=== PATIENT | female | born 1995 | race Two or more races ===

== ENCOUNTER 2017-04-29 18:50 | Emergency (ER) | payer SELFPAY ==
[2017-04-29 19:18] VITALS: BP 105/68; PULSE 74; TEMP 98.5; BMI 26.4
[2017-04-29 20:07] LABS: URINE APPEARANCE CLEAR; URINE BILIRUBIN NEGATIVE (NEGATIVE); URINE BLOOD NEGATIVE (NEGATIVE); URINE COLOR LTYELLOW; URINE GLUCOSE (UA) NEGATIVE (NEGATIVE); URINE KETONE NEGATIVE (NEGATIVE); URINE LEUK ESTERASE NEGATIVE (NEGATIVE); URINE NITRITE NEGATIVE (NEGATIVE); URINE PROTEIN NEGATIVE (NEGATIVE); URINE UROBILINOGEN NEGATIVE mg/dL (0.2-1.0)
[2017-04-29 20:13] LABS: BASOPHIL 0.4 % (0-2.0); EOSINOPHIL 1.1 % (0-4.5); MCH 27.3 pg (25.7-33.7); MCHC 32.8 g/dl (32.0-36.0); MEAN CELL VOLUME 83.2 fl (80-96); MEAN PLT VOLUME 8.1 fl (7.5-11.1); NEUTROPHILS 62.3 % (42.8-82.8); PLATELET COUNT 209 K/MM3 (134-434); RDW 13.6 % (11.6-15.6); WHITE BLOOD COUNT 7.7 K/mm3 (4.0-10.0)
--- NOTE | 2017-04-29 20:26 | PDOC ---
History of Present Illness - General Chief Complaint: Pain Stated Complaint: PAIN, FATIGUE Time Seen by Provider: 04/29/17 19:29 - History of Present Illness Initial Comments: 04/29/17 20:09 CHIEF COMPLAINT: LLQ abd pain HISTORY OF PRESENT ILLNESS: 22 yo F presents to ED with c/o intermittent LLQ abdominal pain, nausea, vomiting, and "palpitations sometimes. " Patient states that her LMP was 7/4 and she just recently found out she is . She denies any headache, vaginal bleeding, No recent travel or sick contacts. PAST MEDICAL HISTORY: Denies past medical history FAMILY HISTORY: Denies SOCIAL HISTORY:Denies tobacco, alcohol, illicit drug use. SURGICAL HISTORY: Denies ALLERGIES: No known drug allergies REVIEW OF SYSTEMS General/Constitutional: Denies fever or chills. Denies weakness, weight change. HEENT: Denies change in vision. Denies ear pain or discharge. Denies sore throat. Cardiovascular: Denies chest pain or shortness of breath. Respiratory: Denies cough, wheezing, or hemoptysis. Gastrointestinal: Nausea, vomiting. Denies diarrhea or constipation. Denies rectal bleeding. Genitourinary: Denies dysuria, frequency, or change in urination. Musculoskeletal: Denies joint or muscle swelling or pain. Denies neck or back pain. Skin: Denies rash or easy bruising. Neurologic: Denies headache, vertigo, loss of consciousness, or loss of sensation. PHYSICAL EXAM General Appearance: Well-appearing, appropriately dressed. No apparent distress. HEENT: EOMI, PERRLA, normal ENT inspection, normal voice, TMs normal, pharynx normal. No conjunctival pallor. No photophobia, scleral icterus. Neck: Supple. Trachea midline. No tenderness, rigidity, carotid bruit, stridor , lymphadenopathy, or thyromegaly. Respiratory/Chest: Lungs CTAB. No shortness of breath, chest tenderness, respiratory distress, accessory muscle use. No crackles, rales, rhonchi, stridor , wheezing, dullness Cardiovascular: RRR. S1, S2. Vascular Pulses: Dorsalis-Pedis (R): 2+, Dorsalis-Pedis (L): 2+ Gastrointestinal/Abdominal: Normal bowel sounds. Abdomen soft, non-distended. No tenderness or rebound tenderness. No organomegaly, pulsatile mass, guarding , hernia, hepatomegaly, splenomegaly. Pelvic: External genitalia normal without lesions. Vaginal vault is clear without blood or discharge. Cervix is long and closed. No cervical motion tenderness. Uterus is nontender and normal in size. Adnexa are nontender and without masses. Lymphatic: No adenopathy, tenderness. Musculoskeletal/Extremities: Normal inspection. FROM of all extremities, normal capillary refill. Pelvis Stable. No CVA tenderness. No tenderness to extremities, pedal edema, swelling, erythema or deformity. Integumentary: Appropriate color, dry, warm. No cyanosis, erythema, jaundice or rash Neurologic: bank courier II-XII intact. Fully oriented, alert. Appropriate mood/affect. Motor strength 5/5. No appreciable EOM palsy, facial droop or sensory deficit. 04/29/17 20:27 Past History - Past Medical History Allergies/Adverse Reactions: Allergies Allergy/AdvReac Type Severity Reaction Status Date / Time No Known Allergies Allergy Verified 01/06/15 22:08 Home Medications: Ambulatory Orders Vitamins (Sjr) - 1 tab PO DAILY 04/21/14 Ferrous Sulfate [Feosol] 325 mg PO DAILY 07/21/14 Doxylamine/Pyridoxine HCl [Yamila Dr 10-10 mg Tablet] 1 each PO ASDIR #60 tablet. 04/29/17 Asthma: Yes Cancer: No Cardiac Disorders: No Diabetes: No HTN: No Seizures: No Thyroid Disease: No - Surgical History Appendectomy: Yes - Immunization History Td Vaccination: Yes Immunization Up to Date: Yes - Psycho/Social/Smoking Cessation Hx Anxiety: No Suicidal Ideation: No Smoking Status: No Smoking History: Current some day smoker Years of Tobacco Use: 0 Have you smoked in the past 12 months: No Number of Cigarettes Smoked Daily: 0 If you are a former smoker, when did you quit?: Hookah Cigars Per Day: 0 Information on smoking cessation initiated: No Hx Alcohol Use: No Drug/Substance Use Hx: No Hx Substance Use Treatment: No *Physical Exam - Vital Signs Last Vital Signs Temp Pulse Resp BP Pulse Ox 98.5 F 74 16 105/68 100 04/29/17 19:16 04/29/17 19:16 04/29/17 19:16 04/29/17 19:16 04/29/17 19:16 ED Treatment Course - LABORATORY CBC & Chemistry Diagram: 04/29/17 20:00 04/29/17 19:52 - ADDITIONAL ORDERS Additional order review: Laboratory Results 04/29/17 19:52 Urine Color Ltyellow Urine Appearance Clear Urine pH 7.0 D Urine Protein Negative Urine Glucose (UA) Negative Urine Ketones Negative Urine Blood Negative Urine Nitrite Negative Urine Bilirubin Negative Urine Urobilinogen Negative Ur Leukocyte Esterase Negative Urine HCG, Qual Positive - RADIOLOGY Radiology Studies Ordered: Category Date Time Status TRANSVAGINAL US PREG [US] Stat Ultrasound 04/29/17 19:48 Ordered Medical Decision Making - Medical Decision Making 04/29/17 21:14 22 yo F presents to ED with c/o intermittent LLQ abdominal pain, nausea, vomiting, and "palpitations sometimes." -EKG -CBC, CMP, beta hcg -UA, Ucx -TVUS 04/29/17 22:22 TVUS results: Single live IUP with EGA of 6 weeks. FHR 89 bpm, continued surveillance recommended for low heart rate. Ovaries notable for possible corpus luteum cyst in R ovary. Flow demonstrated in both ovaries utilizing color flow an Doppler waveform imaging. No ultrasound evidence of ovarian torsion. No free fluid demonstrated in pelvis. Read by: Dr. Merissa Choi Discussed US results with patient. Advised patient to return in two days or f/ u with Dr. Rico for repeat beta hCG for continued evaluation of . Advised patient of signs and symptoms for return to ER; patient verbalized understanding and agrees to plan. *DC/Admit/Observation/Transfer Diagnosis at time of Disposition: Threatened - Discharge Dispostion Disposition: HOME Condition at time of disposition: Stable Admit: No - Prescriptions Prescriptions: Doxylamine/Pyridoxine HCl [Yamila Darling 10-10 mg Tablet] 1 each PO ASDIR #60 tablet.dr - Referrals Referrals: Adam Russell MD [Primary Care Provider] - Gurvinder Brantley MD [Staff Physician] - - Patient Instructions Printed Discharge Instructions: DI for Threatened Additional Instructions: Please take medication as prescribed. As discussed, you must return to the ER in 48 hours or follow up with Dr. Rico for repeat labwork for continued evaluation of your . If you develop severe abdominal pain, vaginal bleeding or cramping, abnormal discharge, or any new or worsening symptoms, please return to the ER.
[2017-04-29 20:55] LABS: ALBUMIN 3.7 g/dl (3.4-5.0); ANION GAP 9 (8-16); BILIRUBIN,TOTAL 0.5 mg/dL (0.2-1.0); CALCIUM 8.8 mg/dL (8.5-10.1); CO2 24 mmol/L (21-32); CREATININE 0.6 mg/dL (0.55-1.02); GLUCOSE,RANDOM 86 mg/dL (74-106); SGOT/AST 12 U/L (15-37); SGPT/ALT 21 U/L (12-78)
[2017-04-29 21:09] LABS: ALK PHOS 63 U/L (45-117)
--- NOTE | 2017-04-30 22:14 | EKG ---
Test Reason : Blood Pressure : / mmHG Vent. Rate : 072 BPM Atrial Rate : 072 BPM P-R Int : 148 ms QRS Dur : 082 ms QT Int : 382 ms P-R-T Axes : 030 018 027 degrees QTc Int : 418 ms NORMAL SINUS RHYTHM LOW VOLTAGE QRS BORDERLINE ECG WHEN COMPARED WITH ECG OF 26-MAR-2013 04:11, NO SIGNIFICANT CHANGE WAS FOUND Confirmed by MISTY GARCIA MD ([id number]) on 04/30/2017 10:14:00 PM Referred By: Confirmed By:MISTY GARCIA MD
== END 2017-04-29 22:33 | disposition home or self-care (01) ==
LOC: JER 18:50
DX: O20.0 Threatened abortion (principal); O34.81 Maternal care for other abnormalities of pelvic organs, first trimester; N83.201 Unspecified ovarian cyst, right side; Z3A.01 Less than 8 weeks gestation of pregnancy
CPT/HCPCS: 36415; 76817-TC; 80053; 81003; 84702; 84703; 85025; 87086; 93005; 93010; 99283-25

== ENCOUNTER 2017-05-03 10:42 | Emergency (ER) | payer SELFPAY ==
[2017-05-03 10:51] VITALS: BP 107/57; PULSE 80; TEMP 98.6; BMI 26.9
--- NOTE | 2017-05-03 11:28 | PDOC ---
Attending Attestation - Resident Resident Name: Mary Jordan - ED Attending Attestation I have performed the following: I have examined & evaluated the patient, The case was reviewed & discussed with the resident, I agree w/resident's findings & plan, Exceptions are as noted - HPI HPI: 05/03/17 11:25 Abdominal Pain, Six weeks 05/03/17 11:26 - Physicial Exam PE: 05/03/17 11:25 VSS/NAD Abd Soft and Benign - Medical Decision Making 05/03/17 11:[address] Jordan's Assessment and Plan
--- NOTE | 2017-05-03 12:00 | PDOC ---
History of Present Illness - General Chief Complaint: Pain, Acute Stated Complaint: PELVIC PAIN (6 WKS ) Time Seen by Provider: 05/03/17 11:20 History Source: Patient Exam Limitations: No Limitations - History of Present Illness Initial Comments: 22yo F with no significant PMH presents c/o lower abdominal pain x 6 weeks. Pt was last here 4 days ago for same complaint, when she had recently found out she was . Lower abdominal pain is described a tightening, intermittent, almost feeling like a contraction. Pain does not radiate, rated 5 /10. Pt also c/o nausea, constipation, and hx of palpitations. Pt denies fever , vaginal bleeding, vomiting. 05/03/17 11:55 Past History - Past Medical History Allergies/Adverse Reactions: Allergies Allergy/AdvReac Type Severity Reaction Status Date / Time No Known Allergies Allergy Verified 05/03/17 10:47 Home Medications: Ambulatory Orders Vitamins (Sjr) - 1 tab PO DAILY 04/21/14 Ferrous Sulfate [Feosol] 325 mg PO DAILY 07/21/14 Anemia: Yes Asthma: Yes Cancer: No Cardiac Disorders: No Diabetes: No HTN: No Seizures: No Thyroid Disease: No - Surgical History Appendectomy: Yes - Reproductive History LMP comment: 02/27/17 - Immunization History Td Vaccination: Yes Immunization Up to Date: Yes - Psycho/Social/Smoking Cessation Hx Anxiety: No Suicidal Ideation: No Smoking Status: No Smoking History: Never smoked Years of Tobacco Use: 0 Have you smoked in the past 12 months: No Number of Cigarettes Smoked Daily: 0 If you are a former smoker, when did you quit?: Hookah Cigars Per Day: 0 Information on smoking cessation initiated: No Hx Alcohol Use: No Drug/Substance Use Hx: No Hx Substance Use Treatment: No Review of Systems - Review of Systems Able to Perform ROS?: Yes Is the patient limited Occitan proficient: No Constitutional: No: Chills, Diaphoresis, Fever HEENTM: No: Recent change in vision, Ear Pain, Nose Pain, Throat Pain Respiratory: No: Cough, Shortness of Breath, Stridor, Wheezing, Hemoptysis Cardiac (ROS): No: Chest Pain, Irregular Heart Rate, Palpitations ABD/GI: Yes: Constipated, Nausea, Abdominal cramping. No: Abdominal Distended, Diarrhea, Rectal Bleeding, Vomiting : No: Burning, Dysuria, Hematuria Musculoskeletal: No: Joint Pain, Muscle Pain Neurological: No: Headache, Unsteady Gait, Dizziness *Physical Exam - Vital Signs Last Vital Signs Temp Pulse Resp BP Pulse Ox 98.6 F 80 19 107/57 99 05/03/17 10:47 05/03/17 10:47 05/03/17 10:47 05/03/17 10:47 05/03/17 10:47 - Physical Exam General Appearance: Yes: Nourished, Appropriately Dressed. No: Apparent Distress HEENT: positive: EOMI, Other (moist mucous membranes). negative: Normal Voice, Pale Conjunctivae, Scleral Icterus (R), Scleral Icterus (L) Neck: positive: Trachea midline, Supple Respiratory/Chest: positive: Lungs Clear, Normal Breath Sounds. negative: Respiratory Distress, Accessory Muscle Use Cardiovascular: positive: Regular Rhythm, Regular Rate, S1, S2. negative: Murmur Female Pelvic Exam: positive: normal external exam, cervical os closed, normal size ovaries. negative: vaginal bleeding Gastrointestinal/Abdominal: positive: Soft. negative: Distended, Guarding, Rebound, Tenderness Musculoskeletal: positive: Normal Inspection. negative: Decreased Range of Motion Extremity: positive: Normal Inspection, Normal Range of Motion Integumentary: positive: Dry, Warm. negative: Rash Neurologic: positive: Fully Oriented, Alert, Normal Mood/Affect, Normal Response , Motor Strength 5/5 ED Treatment Course - RADIOLOGY Radiology Studies Ordered: Category Date Time Status TRANSVAGINAL ULTRASOUND US [US] Stat Ultrasound 05/03/17 11:49 Ordered Medical Decision Making - Medical Decision Making 22yo F 6 weeks 4 days with no significant PMH presents c/o lower abdominal pain x 6 weeks and nausea. Pain is described as tightening, intermittent, feels almost like a contraction. Pt was just here 4 days ago for same complaint and received transvaginal US which revealed IUP with borderline low heart rate (89 BPM) as well as 1.4cm Right ovarian cyst which pt was concerned about. Pt also reports that she is still waiting for her Medicaid card and was unable to fill her prescription for Diclegis (-related anti-nausea medication). Pt has hx of palpitations, but does not c/o any palpitations now. - UA - Pelvic exam unremarkable. - Transvaginal US ordered to reassess heart rate, though it was explained to pt that this US may not reveal very different information from the US 4 days ago. Education about ovarian cysts was provided, all of pt's questions were answered and pt verbalized understanding. 05/03/17 12:08 05/03/17 13:43 UA negative for UTI Transvaginal US reveals single IUP with estimated gestational age 6 weeks 1 day. heart rate of 112 noted. 2.1cm x 1.4cm hypoechoic Right ovarian cyst again noted, described as likely a hemorrhagic corpus luteum cyst. Pt can go home. *DC/Admit/Observation/Transfer Diagnosis at time of Disposition: Abdominal pain during intrauterine - Discharge Dispostion Admit: No - Referrals Referrals: Adam Russell MD [Primary Care Provider] - - Patient Instructions Additional Instructions: Please fill prescription for Diclegis for nausea and take as directed. Please rest for the next couple days. I hope you start feeling better soon! - Post Discharge Activity Work/School Note: Back to Work
[2017-05-03 12:12] LABS: URINE APPEARANCE SLCLOUDY; URINE BILIRUBIN NEGATIVE (NEGATIVE); URINE BLOOD NEGATIVE (NEGATIVE); URINE COLOR AMBER; URINE GLUCOSE (UA) NEGATIVE (NEGATIVE); URINE KETONE NEGATIVE (NEGATIVE); URINE LEUK ESTERASE NEGATIVE (NEGATIVE); URINE NITRITE NEGATIVE (NEGATIVE); URINE PROTEIN NEGATIVE (NEGATIVE)
== END 2017-05-03 14:15 | disposition home or self-care (01) ==
LOC: JER 10:42
DX: O26.891 Other specified pregnancy related conditions, first trimester (principal); R10.30 Lower abdominal pain, unspecified; O34.81 Maternal care for other abnormalities of pelvic organs, first trimester; N83.291 Other ovarian cyst, right side; Z3A.01 Less than 8 weeks gestation of pregnancy
CPT/HCPCS: 76817-TC; 81003; 99283-25

== ENCOUNTER 2017-07-31 14:44 | Emergency (ER) | payer OTHER ==
--- NOTE | 2017-07-31 14:48 | PDOC ---
Rapid Medical Evaluation Time Seen by Provider: 07/31/17 14:48 Medical Evaluation: Allergies Allergy/AdvReac Type Severity Reaction Status Date / Time No Known Allergies Allergy Verified 07/31/17 14:48 07/31/17 14:48 I have performed a brief in-person evaluation of this patient. The patient presents with a chief complaint of: , ~19 weeks w/ no movement w/ ?lower abd pain today, no vag bleed. OB is Dr Brantley Pertinent physical exam findings: Tachy to 112 (endorses h/o chronic palpitation that has been present prior to ), otherwise stable at triage I have ordered the following:ua/beta/US The patient will proceed to the ED for further evaluation. 07/31/17 14:49 07/31/17 14:53 07/31/17 14:54 07/31/17 14:55
[2017-07-31 14:52] VITALS: BMI 28.9
[2017-07-31 15:18] LABS: URINE APPEARANCE SLCLOUDY; URINE BILIRUBIN NEGATIVE (NEGATIVE); URINE BLOOD NEGATIVE (NEGATIVE); URINE COLOR YELLOW; URINE GLUCOSE (UA) NEGATIVE (NEGATIVE); URINE KETONE NEGATIVE (NEGATIVE); URINE NITRITE NEGATIVE (NEGATIVE); URINE PROTEIN NEGATIVE (NEGATIVE); URINE UROBILINOGEN NEGATIVE mg/dL (0.2-1.0)
--- NOTE | 2017-07-31 16:59 | PDOC ---
History of Present Illness <Juanjo Farah - Last Filed: 07/31/17 16:59> <Huong Murcia - Last Filed: 07/31/17 17:11> - General Chief Complaint: Pain Stated Complaint: 16 WEEKS /ABD PAIN Time Seen by Provider: 07/31/17 14:48 Past History - Past Medical History Anemia: Yes Asthma: Yes Cancer: No Cardiac Disorders: No COPD: No Diabetes: No HTN: No Seizures: No Thyroid Disease: No - Surgical History Appendectomy: Yes - Reproductive History Is Patient Now?: Yes (#): 3 Para: 2 Cervical CA: No Dysfunctional Uterine Bleeding: No Ectopic : No Endometrial CA: No Polycystic Ovaries: No Therapeutic (s) & number: No Tubal Ligation: No - Immunization History Td Vaccination: Yes Immunization Up to Date: Yes - Suicide/Smoking/Psychosocial Hx Smoking Status: No Smoking History: Never smoked Years of Tobacco Use: 0 Have you smoked in the past 12 months: No Number of Cigarettes Smoked Daily: 0 If you are a former smoker, when did you quit?: Hookah Cigars Per Day: 0 Information on smoking cessation initiated: No Hx Alcohol Use: No Drug/Substance Use Hx: No Substance Use Type: None Hx Substance Use Treatment: No <Juanjo Farah - Last Filed: 07/31/17 16:59> <Huong Murcia - Last Filed: 07/31/17 17:11> - Past Medical History Allergies/Adverse Reactions: Allergies Allergy/AdvReac Type Severity Reaction Status Date / Time No Known Allergies Allergy Verified 07/31/17 14:48 Home Medications: Ambulatory Orders Albuterol Sulfate Inhaler - [Ventolin HFA Inhaler -] 1 - 2 inh PO Q4H PRN #1 inhaler 07/31/17 *Physical Exam - Vital Signs Last Vital Signs Temp Pulse Resp BP Pulse Ox 98.0 F 112 H 18 122/57 100 07/31/17 14:48 07/31/17 14:48 07/31/17 14:48 07/31/17 14:48 07/31/17 14:48 <Juanjo Farah - Last Filed: 07/31/17 16:59> - Vital Signs Last Vital Signs Temp Pulse Resp BP Pulse Ox 98.0 F 112 H 18 122/57 100 07/31/17 14:48 07/31/17 14:48 07/31/17 14:48 07/31/17 14:48 07/31/17 14:48 <Gavino Murciaa Aline - Last Filed: 07/31/17 17:11> ED Treatment Course - ADDITIONAL ORDERS Additional order review: Laboratory Results 07/31/17 07/31/17 15:00 15:00 Beta HCG, Quant 8072.3 Urine Color Yellow Urine Appearance Slcloudy Urine pH 6.0 Ur Specific [place] 1.025 Urine Protein Negative Urine Glucose (UA) Negative Urine Ketones Negative Urine Blood Negative Urine Nitrite Negative Urine Bilirubin Negative Urine Urobilinogen Negative <Juanjo Farah - Last Filed: 07/31/17 16:59> - ADDITIONAL ORDERS Additional order review: Laboratory Results 07/31/17 07/31/17 15:00 15:00 Beta HCG, Quant 8072.3 Urine Color Yellow Urine Appearance Slcloudy Urine pH 6.0 Ur Specific [place] 1.025 Urine Protein Negative Urine Glucose (UA) Negative Urine Ketones Negative Urine Blood Negative Urine Nitrite Negative Urine Bilirubin Negative Urine Urobilinogen Negative <Huong Murcia - Last Filed: 07/31/17 17:11> *DC/Admit/Observation/Transfer <GaganJuanjo - Last Filed: 07/31/17 16:59> <Huong Murcia - Last Filed: 07/31/17 17:11> Diagnosis at time of Disposition: 14-20 weeks gestation of - Discharge Dispostion Disposition: HOME Condition at time of disposition: Stable - Referrals Referrals: Adam Russell MD [Primary Care Provider] - - Patient Instructions Printed Discharge Instructions: DI for Pelvic Pain, DI for -- Discomforts and Remedies Additional Instructions: 1- your albuterol inhaler prescription is sent to your pharmacy 2. please followup with Dr Rico 3. Remember to turn in your cardiac holter monitor to Dr Russell's office - Post Discharge Activity
--- NOTE | 2017-07-31 17:27 | PDOC ---
History of Present Illness <Huong Murcia - Last Filed: 07/31/17 17:27> - History of Present Illness Initial Comments: 07/31/17 17:29 The patient is a 22 year old (19 weeks 1 day) female, with no significant past medical history, who presents to the emergency department for decreased movement and palpitations. Patient says she was recently certified for medicaid and is anxious to obtain the care shes been missing. She came to the ER because she was concerned that she didn't feel the fetus move. She states she is also experiencing palpitations. She denies pelvic cramps or bleeding. She denies recent fevers, chills, headache or dizziness. She denies recent nausea, vomit, diarrhea or constipation. She denies recent dysuria, frequency, urgency or hematuria. She denies recent chest pain or shortness of breath. Allergies: NKA Past surgical history: None reported. Social history: Occasional hookah smoker.. Denies EtOH use and recreational drug use. Primary Care Physician: Adam Russell <Jesika Schultz - Last Filed: 07/31/17 17:30> - General Chief Complaint: Pain Stated Complaint: 16 WEEKS /ABD PAIN Time Seen by Provider: 07/31/17 14:48 Past History - Past Medical History Anemia: Yes Asthma: Yes Cancer: No Cardiac Disorders: No COPD: No Diabetes: No HTN: No Seizures: No Thyroid Disease: No - Surgical History Appendectomy: Yes - Reproductive History Is Patient Now?: Yes (#): 3 Para: 2 Cervical CA: No Dysfunctional Uterine Bleeding: No Ectopic : No Endometrial CA: No Polycystic Ovaries: No Therapeutic (s) & number: No Tubal Ligation: No - Immunization History Td Vaccination: Yes Immunization Up to Date: Yes - Suicide/Smoking/Psychosocial Hx Smoking Status: No Smoking History: Never smoked Years of Tobacco Use: 0 Have you smoked in the past 12 months: No Number of Cigarettes Smoked Daily: 0 If you are a former smoker, when did you quit?: Hookah Cigars Per Day: 0 Information on smoking cessation initiated: No Hx Alcohol Use: No Drug/Substance Use Hx: No Substance Use Type: None Hx Substance Use Treatment: No <Huong Murcia - Last Filed: 07/31/17 17:27> <Jesika Schultz - Last Filed: 07/31/17 17:30> - Past Medical History Allergies/Adverse Reactions: Allergies Allergy/AdvReac Type Severity Reaction Status Date / Time No Known Allergies Allergy Verified 07/31/17 14:48 Home Medications: Ambulatory Orders Albuterol Sulfate Inhaler - [Ventolin HFA Inhaler -] 1 - 2 inh PO Q4H PRN #1 inhaler 07/31/17 Review of Systems - Review of Systems Comments:: 07/31/17 17:29 CONSTITUTIONAL: Absent: fever, no chills, no fatigue EYES: Absent: visual changes ENT: Absent: ear pain, no sore throat CARDIOVASCULAR: Present: palpitations Absent: chest pain RESPIRATORY: Absent: cough, no SOB GI: Absent: abdominal pain, no nausea, no vomiting, no constipation, no diarrhea GENITOURINARY: Absent: dysuria, no frequency, no hematuria 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 MUSCULOSKELETAL: Absent: back pain, no arthralgia, no myalgia SKIN: Absent: rash NEURO: Absent: headache <AntoineJesika - Last Filed: 07/31/17 17:30> *Physical Exam - Vital Signs Last Vital Signs Temp Pulse Resp BP Pulse Ox 98.0 F 112 H 18 122/57 100 07/31/17 14:48 07/31/17 14:48 07/31/17 14:48 07/31/17 14:48 07/31/17 14:48 <TwinGavinorocio Choudharyh - Last Filed: 07/31/17 17:27> - Vital Signs Last Vital Signs Temp Pulse Resp BP Pulse Ox 98.0 F 112 H 18 122/57 100 07/31/17 14:48 07/31/17 14:48 07/31/17 14:48 07/31/17 14:48 07/31/17 14:48 - Physical Exam Comments: 07/31/17 17:30 GENERAL: Well-appearing, well-nourished. No apparent distress. HEENT: Normocephalic, atraumatic. PERRL, EOM intact. CARDIOVASCULAR: Normal S1, S2. Regular rate and rhythm. PULMONARY: Clear to auscultation bilaterally. ABDOMEN: Soft, non-distended, non-tender. EXTREMITIES: Normal ROM in all four extremities. No gross deformities. SKIN: Warm, dry. No rash NEUROLOGICAL: No focal neurological deficits. <Jesika Schultz - Last Filed: 07/31/17 17:30> ED Treatment Course - ADDITIONAL ORDERS Additional order review: Laboratory Results 07/31/17 07/31/17 15:00 15:00 Beta HCG, Quant 8072.3 Urine Color Yellow Urine Appearance Slcloudy Urine pH 6.0 Ur Specific [place] 1.025 Urine Protein Negative Urine Glucose (UA) Negative Urine Ketones Negative Urine Blood Negative Urine Nitrite Negative Urine Bilirubin Negative Urine Urobilinogen Negative <Huong Murcia - Last Filed: 07/31/17 17:27> - ADDITIONAL ORDERS Additional order review: Laboratory Results 07/31/17 07/31/17 15:00 15:00 Beta HCG, Quant 8072.3 Urine Color Yellow Urine Appearance Slcloudy Urine pH 6.0 Ur Specific [place] 1.025 Urine Protein Negative Urine Glucose (UA) Negative Urine Ketones Negative Urine Blood Negative Urine Nitrite Negative Urine Bilirubin Negative Urine Urobilinogen Negative <Jesika Schultz - Last Filed: 07/31/17 17:30> *DC/Admit/Observation/Transfer <Huong Murcia - Last Filed: 07/31/17 17:27> - Attestations Scribe Attestion: 07/31/17 17:30 Documentation prepared by Jesika Schultz, acting as medical policy specialist for Huong Murcia MD. <Jesika Schultz - Last Filed: 07/31/17 17:30> Diagnosis at time of Disposition: 14-20 weeks gestation of - Discharge Dispostion Disposition: HOME Condition at time of disposition: Stable - Prescriptions Prescriptions: Albuterol Sulfate Inhaler - [Ventolin HFA Inhaler -] 1 - 2 inh PO Q4H PRN #1 inhaler PRN Reason: Asthma - Referrals Referrals: Adam Russell MD [Primary Care Provider] - - Patient Instructions Printed Discharge Instructions: DI for -- Discomforts and Remedies, DI for Pelvic Pain Additional Instructions: 1- your albuterol inhaler prescription is sent to your pharmacy 2. please followup with Dr Rico 3. Remember to turn in your cardiac holter monitor to Dr Russell's office - Post Discharge Activity
[2017-07-31 18:24] VITALS: BP 111/65; PULSE 86; TEMP 98.1
[2017-07-31 18:49] LABS: URINE LEUK ESTERASE Negative (NEGATIVE)
== END 2017-07-31 17:55 | disposition home or self-care (01) ==
LOC: JER 14:44
DX: O26.892 Other specified pregnancy related conditions, second trimester (principal); Z3A.19 19 weeks gestation of pregnancy
CPT/HCPCS: 36415; 76815-TC; 81003; 84702; 99282-25

== ENCOUNTER 2017-09-25 14:08 | Emergency (ER) | payer OTHER ==
--- NOTE | 2017-09-25 14:26 | PDOC ---
Rapid Medical Evaluation Chief Complaint: Asthma Time Seen by Provider: 09/25/17 14:23 Medical Evaluation: Allergies Allergy/AdvReac Type Severity Reaction Status Date / Time No Known Allergies Allergy Verified 09/25/17 14:23 09/25/17 14:24 Pt c/o: sob and wheezing since last night. c/o intermittent palpitation. hx of astham 27b weeks Pt on exam: no wheezing, no decreased BS, hr 94, o2 sat wnl Pt ordered for : ekg Pt to proceed to ED Discharge Disposition - Diagnosis Shortness of breath - Referrals - Patient Instructions - Post Discharge Activity
[2017-09-25 14:28] VITALS: BP 97/54; PULSE 94; TEMP 98.3; BMI 30.7
--- NOTE | 2017-09-25 15:05 | EKG ---
Test Reason : Blood Pressure : / mmHG Vent. Rate : 080 BPM Atrial Rate : 080 BPM P-R Int : 148 ms QRS Dur : 080 ms QT Int : 370 ms P-R-T Axes : 029 022 022 degrees QTc Int : 426 ms NORMAL SINUS RHYTHM T WAVE ABNORMALITY, CONSIDER ANTERIOR ISCHEMIA ABNORMAL ECG WHEN COMPARED WITH ECG OF 29-APR-2017 20:11, NO SIGNIFICANT CHANGE WAS FOUND Confirmed by MD LUKE, SHAISTA ([id number]) on 09/25/2017 3:05:35 PM Referred By: Confirmed By:SHAISTA BUTLER MD
--- NOTE | 2017-09-25 15:24 | PDOC ---
History of Present Illness - General Chief Complaint: Asthma Stated Complaint: ASTHMA Time Seen by Provider: 09/25/17 14:23 History Source: Patient Exam Limitations: No Limitations - History of Present Illness Initial Comments: 09/25/17 15:23 22 yr female with history of asthma , 27 weeks states she has been coughing having chest pain worse at night with heartburn. no fever, no shortness of breath, no history of intubations. Past History - Past Medical History Allergies/Adverse Reactions: Allergies Allergy/AdvReac Type Severity Reaction Status Date / Time No Known Allergies Allergy Verified 09/25/17 14:23 Home Medications: Ambulatory Orders Albuterol Sulfate Inhaler - [Ventolin HFA Inhaler -] 1 - 2 inh PO Q4H PRN #1 inhaler 07/31/17 Ferrous Sulfate, Dried [Iron] 159 mg PO ASDIR 09/25/17 Anemia: Yes Asthma: Yes Cancer: No Cardiac Disorders: No COPD: No Diabetes: No HTN: No Seizures: No Thyroid Disease: No - Surgical History Appendectomy: Yes - Reproductive History (#): 3 Para: 2 Cervical CA: No Dysfunctional Uterine Bleeding: No Ectopic : No Endometrial CA: No Polycystic Ovaries: No Therapeutic (s) & number: No Tubal Ligation: No - Immunization History Td Vaccination: Yes Immunization Up to Date: Yes - Suicide/Smoking/Psychosocial Hx Smoking Status: No Smoking History: Never smoked Years of Tobacco Use: 0 Have you smoked in the past 12 months: No Number of Cigarettes Smoked Daily: 0 If you are a former smoker, when did you quit?: Hookah Cigars Per Day: 0 Information on smoking cessation initiated: No Hx Alcohol Use: No Drug/Substance Use Hx: No Substance Use Type: None Hx Substance Use Treatment: No *Physical Exam - Vital Signs Last Vital Signs Temp Pulse Resp BP Pulse Ox 98.3 F 94 H 15 97/54 99 09/25/17 14:23 09/25/17 14:23 09/25/17 14:23 09/25/17 14:23 09/25/17 14:23 *DC/Admit/Observation/Transfer Diagnosis at time of Disposition: Shortness of breath - Referrals Referrals: Adam Russell MD [Primary Care Provider] - - Patient Instructions - Post Discharge Activity
--- NOTE | 2017-09-25 16:06 | PDOC ---
History of Present Illness <Nick Galvez - Last Filed: 09/25/17 16:10> - General History Source: Patient Exam Limitations: No Limitations - History of Present Illness Initial Comments: 09/25/17 18:59 The patient is a A0, 22 year old female who is 27 weeks , with a significant PMH of asthma who presents to the emergency department with chest tightness, shortness of breath, dry cough and wheezing that lasted from approximately midnight last night to 3AM today that has since resolved . The patient states she gets intermittent palpitations and chest tightness throughout her . is currently getting a workup for her palpitations with a monitor with her PMD. Pt denies any worsening of sob/palpitations when she is walking around.. The patient reports using her albuterol last night with mild alleviation of her symptoms. Pt does endorse mild coughing last night that is nonproductive.The patient notes she went to her [facility] appointment today and was told to come to the ER for further evaluation. The patient states her chest tightness has resolved since arrival to the ER. The patient denies leg swelling, headache and dizziness. Denies fever, chills, productive cough, hemoptysis, nausea, vomit, diarrhea and constipation. Denies dysuria, frequency, urgency and hematuria. No associated leg swelling, calf pain. Allergies: NKA Past surgical history: None reported. Social history: No reported alcohol, drug, or cigarette use. PCP: Adam Shafer <Willa Nash - Last Filed: 09/25/17 19:00> - General Chief Complaint: Asthma Stated Complaint: ASTHMA Time Seen by Provider: 09/25/17 14:23 Past History - Past Medical History Anemia: Yes Asthma: Yes Cancer: No Cardiac Disorders: No COPD: No Diabetes: No HTN: No Seizures: No Thyroid Disease: No - Surgical History Appendectomy: Yes - Reproductive History (#): 3 Para: 2 Cervical CA: No Dysfunctional Uterine Bleeding: No Ectopic : No Endometrial CA: No Polycystic Ovaries: No Therapeutic (s) & number: No Tubal Ligation: No - Immunization History Td Vaccination: Yes Immunization Up to Date: Yes - Suicide/Smoking/Psychosocial Hx Smoking Status: No Smoking History: Former smoker Years of Tobacco Use: 0 Have you smoked in the past 12 months: No Number of Cigarettes Smoked Daily: 0 If you are a former smoker, when did you quit?: 6MONTHS Cigars Per Day: 0 Information on smoking cessation initiated: No Hx Alcohol Use: No Drug/Substance Use Hx: No Substance Use Type: None Hx Substance Use Treatment: No <Nick Galvez - Last Filed: 09/25/17 16:10> <Willa Nash - Last Filed: 09/25/17 19:00> - Past Medical History Allergies/Adverse Reactions: Allergies Allergy/AdvReac Type Severity Reaction Status Date / Time No Known Allergies Allergy Verified 09/25/17 14:23 Home Medications: Ambulatory Orders Albuterol Sulfate Inhaler - [Ventolin HFA Inhaler -] 1 - 2 inh PO Q4H PRN #1 inhaler 07/31/17 Ferrous Sulfate, Dried [Iron] 159 mg PO ASDIR 09/25/17 Review of Systems - Review of Systems Able to Perform ROS?: Yes Comments:: 09/25/17 18:59 CONSTITUTIONAL: No reported: Fever, Chills, Diaphoresis, Generalized Weakness, Malaise, Loss of Appetite HEENT: No reported: Rhinorrhea, Nasal Congestion, Throat Pain, Throat Swelling, Difficulty Swallowing, Mouth Swelling, Ear Pain, Eye Pain, Visual Changes CARDIOVASCULAR: No reported: Syncope, Palpitations, Irregular Heart Rate, Lightheadedness, Peripheral Edema Reported: Chest tightness (resolved) RESPIRATORY: No reported: SOB with Exertion, Orthopnea, Stridor, Hemoptysis Reported: Dry cough, shortness of breath (resolved). GASTROINTESTINAL: No reported: Abdominal pain, Abdominal Distension, Nausea, Vomiting, Diarrhea, Constipation, Melena, Hematochezia GENITOURINARY: No reported: Dysuria, Frequency, Urgency, Hesitancy, Flank Pain, Genital Pain MUSCULOSKELETAL: No reported: Myalgia, Arthralgia, Joint Swelling, Back pain, Neck Pain SKIN: No reported: Rash, Itching, Pallor HEMEATOLOGIC/IMMUNOLOGIC: No reported: Easy Bleeding, Easy Bruising, Lymphadenopathy, Frequent infections ENDOCRINE: No reported: Unexplained Weight Gain, Unexplained Weight Loss, Heat Intolerance , Cold Intolerance NEUROLOGIC: No reported: Headache, Focal Weakness, Paresthesias, Vertigo, Lightheadedness, Unsteady Gait, Seizure, Mental Status Changes, Incontinence PSYCHIATRIC: No reported: Anxiety, Depression <Willa Nash - Last Filed: 09/25/17 19:00> *Physical Exam - Vital Signs Last Vital Signs Temp Pulse Resp BP Pulse Ox 98.3 F 94 H 15 97/54 99 09/25/17 14:23 09/25/17 14:23 09/25/17 14:23 09/25/17 14:23 09/25/17 14:23 <Nick Galvez - Last Filed: 09/25/17 16:10> - Vital Signs Last Vital Signs Temp Pulse Resp BP Pulse Ox 98.3 F 94 H 15 97/54 99 09/25/17 14:23 09/25/17 14:23 09/25/17 14:23 09/25/17 14:23 09/25/17 14:23 - Physical Exam Comments: 09/25/17 19:00 GENERAL: The patient is awake, alert, and fully oriented, Nontoxic - in no acute distress. HEAD: Normocephalic, atraumatic. EYES: extraocular movements intact, sclera anicteric, conjunctiva clear. ENT: Normal voice, Moist mucous membranes. NECK: Normal range of motion, supple LUNGS: Breath sounds equal, clear to auscultation bilaterally. No wheezes, no rhonchi, no rales. HEART: Regular rate and rhythm, without murmur, rub or gallop. ABDOMEN: (+) Gravid abdomen, fundus above umbilicous. Soft, nontender, normoactive bowel sounds. No guarding, no rebound.No CVA tenderness EXTREMITIES: Normal range of motion, no edema. No clubbing or cyanosis. No cords, erythema, or tenderness. NEUROLOGICAL: No facial assymetry, Normal speech, PSYCH: Normal mood, normal affect. SKIN: Warm, Dry, normal turgor," <Willa Nash - Last Filed: 09/25/17 19:00> Heart Score/ECG Review - ECG Impressions Comment:: 09/25/17 16:13 Twelve-lead EKG was performed and reviewed by me. There is normal sinus rhythm with a normal rate. axis is normal twi in v2 and v3 (possible juvinile t waves) when compared with prior ekgs, present on old ekg <Nick Galvez - Last Filed: 09/25/17 16:10> Medical Decision Making - Medical Decision Making 09/25/17 16:09 22y F presents with episode of chest tightness this morning around 12-3am, then resolved, she does endorse intermittent symptoms with her but last night was more severe than usual. +mild coughing but without production of sputum, hemotpysis, leg swelling. pt states she feels fine now. she was able to abmulate around the ED without any sob/chest tightness. her exam is essentially unremarkable. suspect possible asthma considered PE, however, she denies any dsypena even with exertion of ambulating around ED - dont think likely will dc the pt with pmd fu return precautions were ddiscussed I discussed the physical exam findings, ancillary test results and final diagnoses with the patient. I answered all of the patient's questions. The patient was satisfied with the care received and felt comfortable with the discharge plan and treatment plan. The patient will call their primary care physician within 24 hours to arrange follow-up and will return to the Emergency Department with any new, persistent or worsening symptoms. <Nick Galvez - Last Filed: 09/25/17 16:10> *DC/Admit/Observation/Transfer - Discharge Dispostion Admit: No <Nick Galvez - Last Filed: 09/25/17 16:10> - Attestations Scribe Attestion: 09/25/17 19:00 Documentation prepared by Willa Nash, acting as medical staff credentialing coordinator for Nick Galvez MD. <Willa Nash - Last Filed: 09/25/17 19:00> Diagnosis at time of Disposition: Shortness of breath, Palpitations - Discharge Dispostion Disposition: HOME Condition at time of disposition: Improved - Referrals Referrals: Adam Russell MD [Primary Care Provider] - - Patient Instructions Printed Discharge Instructions: DI for Atypical Chest Pain, DI for Palpitations Additional Instructions: Return to the emergency department immediately with ANY new, persistent or worsening symptoms. You MUST call and follow up with your doctor tomorrow for further evaluation of your symptoms. Results were discussed with you. Please make sure your doctor reviews the results of your emergency evaluation. If you had any xrays during your visit, it was read preliminarily by myself, a Radiologist will review it and if there are any additional findings we will call you. Print Language: BARBADIAN - Post Discharge Activity
== END 2017-09-25 16:27 | disposition home or self-care (01) ==
LOC: JER 14:08 → JERFT 14:08 → JER 16:27
DX: O99.512 Diseases of the respiratory system complicating pregnancy, second trimester (principal); J45.909 Unspecified asthma, uncomplicated; R00.2 Palpitations; Z87.891 Personal history of nicotine dependence; Z3A.27 27 weeks gestation of pregnancy
CPT/HCPCS: 93005; 93010; 99282-25

== ENCOUNTER 2022-08-28 21:53 | Emergency (ER) | payer OTHER ==
[2022-08-28 22:10] VITALS: BP 115/75; PULSE 87; RESP 17; TEMP 98; BMI 28.3
[2022-08-28 23:06] LABS: EPITHELIAL CELLS FEW /hpf
== END 2022-08-28 23:02 | disposition home or self-care (01) ==
LOC: FER 21:53
DX: N76.0 Acute vaginitis (principal)
CPT/HCPCS: 36415; 81003; 81015; 87086; 87491; 87591; 99283-25

== ENCOUNTER 2022-09-11 02:39 | Emergency (ER) | payer OTHER ==
[2022-09-11 02:45] VITALS: BP 118/73; PULSE 80; RESP 16; TEMP 98.6; BMI 28.6
[2022-09-11] MEDS ORDERED: predniSONE 20 MG TABLET (UD) PO ONE (03:05)
[2022-09-11] MEDS ORDERED: predniSONE 20 MG TABLET (UD) ONE (03:06)
== END 2022-09-11 03:20 | disposition home or self-care (01) ==
LOC: FER 02:39
DX: R07.89 Other chest pain (principal); L29.9 Pruritus, unspecified
CPT/HCPCS: 93005; 99283-25

== ENCOUNTER 2022-10-09 16:24 | Emergency (ER) | payer OTHER ==
[2022-10-09 16:46] VITALS: BP 102/70; PULSE 75; RESP 18; TEMP 98; BMI 29.9
[2022-10-09] MEDS ORDERED: CYCLOBENZAPRINE HCL 10 MG TABLET (FP) PO ONE (16:46)
[2022-10-09] MEDS ORDERED: LIDOCAINE 5% TOPICAL PATCH TP ONE (16:46)
[2022-10-09] MEDS ORDERED: KETOROLAC TROMETHAMINE 30 MG/1 ML VIAL IM ONE (16:46)
[2022-10-09] MEDS ORDERED: CYCLOBENZAPRINE HCL 5 MG TABLET ONE (16:50)
[2022-10-09] MEDS ORDERED: KETOROLAC TROMETHAMINE 30 MG/1 ML VIAL ONE (16:50)
[2022-10-09] MEDS ORDERED: LIDOCAINE 5% TOPICAL PATCH ONE (16:50)
[2022-10-09] MEDS ORDERED: LIDOCAINE PATCH REMOVAL MC SCH (22:00)
== END 2022-10-09 18:07 | disposition home or self-care (01) ==
LOC: FER 16:24
PROC: 3E023GC Introduction of Other Therapeutic Substance into Muscle, Percutaneous Approach (ICD-10-PCS; principal; 2022-10-09)
DX: S39.012A Strain of muscle, fascia and tendon of lower back, initial encounter (principal); M54.31 Sciatica, right side; X50.0XXA Overexertion from strenuous movement or load, initial encounter
CPT/HCPCS: 99284-25

== ENCOUNTER 2022-10-11 11:16 | Emergency (ER) | payer OTHER ==
[2022-10-11 11:28] VITALS: BP 109/67; PULSE 85; RESP 20; TEMP 97.5; BMI 29.2
[2022-10-11] MEDS ORDERED: METHOCARBAMOL 500 MG TABLET PO ONE (13:16)
[2022-10-11] MEDS ORDERED: ACETAMINOPHEN 500 MG TABLET (FP) PO ONE (13:16)
[2022-10-11] MEDS ORDERED: LIDOCAINE 5% TOPICAL PATCH TP ONE (13:16)
[2022-10-11] MEDS ORDERED: KETOROLAC TROMETHAMINE 30 MG/1 ML VIAL IM ONE (13:16)
[2022-10-11] MEDS ORDERED: KETOROLAC TROMETHAMINE 30 MG/1 ML VIAL ONE (13:27)
[2022-10-11] MEDS ORDERED: LIDOCAINE 5% TOPICAL PATCH ONE (13:27)
[2022-10-11] MEDS ORDERED: ACETAMINOPHEN 500 MG TABLET (FP) ONE (13:27)
[2022-10-11] MEDS ORDERED: METHOCARBAMOL 500 MG TABLET ONE (13:42)
[2022-10-11] MEDS ORDERED: LIDOCAINE PATCH REMOVAL MC ONE (22:00)
== END 2022-10-11 14:24 | disposition home or self-care (01) ==
LOC: JERFT 11:16 → JER 11:16 → JERFT 14:24
PROC: 3E023GC Introduction of Other Therapeutic Substance into Muscle, Percutaneous Approach (ICD-10-PCS; principal; 2022-10-11)
DX: S39.012A Strain of muscle, fascia and tendon of lower back, initial encounter (principal); X50.0XXA Overexertion from strenuous movement or load, initial encounter
CPT/HCPCS: 99284-25

== ENCOUNTER 2023-04-23 17:07 | Emergency (ER) | payer OTHER ==
[2023-04-23] MEDS ORDERED: KETOROLAC TROMETHAMINE 30 MG/1 ML VIAL IM ONE (17:09)
[2023-04-23] MEDS ORDERED: ACETAMINOPHEN 325 MG TABLET (FP) PO ONE (17:09)
[2023-04-23] MEDS ORDERED: ACETAMINOPHEN 325 MG TABLET (FP) ONE (17:19)
[2023-04-23] MEDS ORDERED: KETOROLAC TROMETHAMINE 30 MG/1 ML VIAL ONE (17:19)
[2023-04-23 17:21] VITALS: BP 127/83; PULSE 78; RESP 18; TEMP 98; BMI 30.4
== END 2023-04-23 18:03 | disposition home or self-care (01) ==
LOC: FER 17:07
PROC: 3E0233Z Introduction of Anti-inflammatory into Muscle, Percutaneous Approach (ICD-10-PCS; principal; 2023-04-23)
DX: M79.10 Myalgia, unspecified site (principal); Y04.8XXA Assault by other bodily force, initial encounter
CPT/HCPCS: 71046-TC-FY; 99284-25

== ENCOUNTER 2023-09-26 00:02 | Emergency (ER) | payer OTHER ==
[2023-09-26 00:14] VITALS: BP 111/81; PULSE 75; RESP 16; TEMP 98; BMI 32.9
[2023-09-26] MEDS ORDERED: IBUPROFEN 600 MG TABLET (FP) PO ONE ×2 (00:27→01:01)
== END 2023-09-26 01:08 | disposition home or self-care (01) ==
LOC: FER 00:02
DX: S16.1XXA Strain of muscle, fascia and tendon at neck level, initial encounter (principal); S63.610A Unspecified sprain of right index finger, initial encounter; S20.211A Contusion of right front wall of thorax, initial encounter; R07.89 Other chest pain; M54.2 Cervicalgia; Y04.8XXA Assault by other bodily force, initial encounter
CPT/HCPCS: 72050-TC-FY; 73140-TC-RT-FY; 99284-25

== ENCOUNTER 2023-11-15 22:05 | Emergency (ER) | payer OTHER ==
[2023-11-15 22:18] VITALS: BP 116/72; PULSE 84; RESP 16; TEMP 98.9; BMI 33.0
== END 2023-11-15 22:34 | disposition home or self-care (01) ==
LOC: FER 22:05
DX: R05.9 Cough, unspecified (principal); R09.81 Nasal congestion; R50.9 Fever, unspecified; J06.9 Acute upper respiratory infection, unspecified; Z20.822 Contact with and (suspected) exposure to COVID-19
CPT/HCPCS: 0241U-QW; 99283-25

== ENCOUNTER 2025-01-23 18:35 | Emergency (ER) | payer OTHER ==
[2025-01-23 18:43] VITALS: RESP 18; BMI 31.6
[2025-01-23 19:14] LABS: PH,URINE 7.5 (5.0-8.0); URINE APPEARANCE CLOUDY; URINE BILIRUBIN NEGATIVE (NEGATIVE); URINE COLOR YELLOW; URINE GLUCOSE (UA) NEGATIVE (NEGATIVE); URINE KETONE NEGATIVE (NEGATIVE); URINE LEUK ESTERASE NEGATIVE (NEGATIVE); URINE NITRITE NEGATIVE (NEGATIVE); URINE PROTEIN NEGATIVE (NEGATIVE)
[2025-01-23] MEDS ORDERED: ACETAMINOPHEN INJECTION 100 ML ONE (19:43)
[2025-01-23] MEDS ORDERED: ONDANSETRON 4 MG/2 ML VIAL ONE (19:43)
[2025-01-23] MEDS: ACETAMINOPHEN 1000 MG/100 ML BAG IVPB ONE (20:07)
[2025-01-23] MEDS: ONDANSETRON 4 MG/2 ML VIAL IVPUSH ONE (20:07)
[2025-01-23 20:18] LABS: ABSOLUTE IMMATURE GRANULOCYTES 0.03 x10^3/uL (0.0-0.031); BASOPHILS # 0.04 x10^3/uL (0.01-0.08); EOSINOPHIL % 0.7 % (0.7-5.8); EOSINOPHILS # 0.06 x10^3/uL (0.04-0.36); HEMOGLOBIN 12.4 g/dL (11.2-15.7); MCHC 31.8 g/dl (32.2-35.5); MEAN CELL VOLUME 82.5 fl (79.4-94.8); MEAN PLT VOLUME 9.9 fl (9.4-12.3); MONOCYTE # 0.48 x10^3/uL (0.24-0.86); MONOCYTE % 5.7 % (4.7-12.5); PLATELET COUNT 248 x10^3/uL (182-369); RDW 13.2 % (12.1-16.5)
[2025-01-23] MEDS ORDERED: FAMOTIDINE 20 MG/50 ML IVPB 20 MG/50 ML MG IVPB ONE (20:19)
[2025-01-23 20:24] LABS: INR 1.08 (0.83-1.09); PROTHROMBIN TIME (PATIENT) 11.9 SEC (9.7-13.0)
[2025-01-23] MEDS: FAMOTIDINE 20 MG/50 ML IVPB 20 MG/50 ML MG IVPB ONE (20:24)
[2025-01-23 20:27] LABS: ACTIVATED PTT 31.1 SECONDS (25.2-36.5)
[2025-01-23 21:03] LABS: POTASSIUM 3.6 mmol/L (3.5-5.1)
[2025-01-23 21:06] LABS: CALCIUM 9.4 mg/dL (8.5-10.1)
[2025-01-23 21:07] LABS: ALBUMIN 3.8 g/dl (3.4-5.0); BLOOD UREA NITROGEN 15.2 mg/dL (7-18); MAGNESIUM 2.3 mg/dL (1.8-2.4)
[2025-01-23 21:10] LABS: CREATININE 0.7 mg/dL (0.55-1.3)
[2025-01-23 21:11] LABS: BILIRUBIN,TOTAL 0.3 mg/dL (0.2-1); TOT PROT 7.4 g/dl (6.4-8.2)
[2025-01-23 21:37] LABS: HCV DIAGNOSTIC IN-HOUSE W/RFLX NON-REACTIVE (NONREACTIVE); HIV INTERPRETATION NEGATIVE (NEGATIVE)
[2025-01-23 22:09] VITALS: BP 109/70; PULSE 77; TEMP 98.1
== END 2025-01-23 23:12 | disposition home or self-care (01) ==
LOC: JER 18:35
PROC: 3E033GC Introduction of Other Therapeutic Substance into Peripheral Vein, Percutaneous Approach (ICD-10-PCS; principal; 2025-01-23)
PROC: 3E033NZ Introduction of Analgesics, Hypnotics, Sedatives into Peripheral Vein, Percutaneous Approach (ICD-10-PCS; 2025-01-23)
PROC: 3E033GC Introduction of Other Therapeutic Substance into Peripheral Vein, Percutaneous Approach (ICD-10-PCS; 2025-01-23)
DX: R11.2 Nausea with vomiting, unspecified (principal); R10.13 Epigastric pain; R20.2 Paresthesia of skin; R51.9 Headache, unspecified; M54.2 Cervicalgia; F43.9 Reaction to severe stress, unspecified; F41.0 Panic disorder [episodic paroxysmal anxiety]
CPT/HCPCS: 36415; 74177-TC; 80053; 81003; 83605; 83690; 83735; 84703; 85025; 85610; 85730; 86803; 86850; 86900; 86901; 87086; 87389; 99285-25; J0131; Q9967